=== PATIENT | male | born 2000 | race Two or more races ===

== ENCOUNTER 2021-04-28 13:48 | Emergency (ER) | payer SELFPAY ==
[~2021-04-28] VITALS: Ht 162.6 cm; Wt 54.6 kg
[2021-04-28 13:50] VITALS: BP 119/62
--- NOTE | 2021-04-28 14:13 | NUR ---
CHEST PAIN X1 WEEK. PT C/O CHEST PAIN AFTER GETTING HIT WHILE PLAYING SOCCER LAST WEEK. "IT HURTS WHEEN I SNEEZE OR MOVE A CERTAIN WAY." vss-ecg in triage lungs clear bilaterally
== END 2021-04-28 14:36 | disposition home or self-care (01) ==
LOC: ED 14:30
DX: S20.212A Contusion of left front wall of thorax, initial encounter (principal); W21.02XA Struck by soccer ball, initial encounter; Y93.66 Activity, soccer; Y92.322 Soccer field as the place of occurrence of the external cause; Y99.8 Other external cause status
CPT/HCPCS: 93005; 99283